=== PATIENT | female | born 1995 | race African-American/Black ===

== ENCOUNTER 2019-01-27 21:23 | Emergency (ER) | payer MEDICAID ==
[~2019-01-27] VITALS: Ht 165.1 cm; Wt 79.0 kg
[2019-01-27] MEDS ORDERED: KETOROLAC 15MG/ML VIAL IV ONE (23:15)
[2019-01-28] MEDS ORDERED: MORPHINE SULFATE 4 MG/ML CPJ (NOT FOR IM USE) IV ONE (01:15)
[2019-01-28] MEDS ORDERED: ONDANSETRON HCL 4MG/2ML INJ IV ONE (02:15)
[2019-01-28] MEDS ORDERED: PROPOFOL 200MG/20ML VIAL IV ONE (02:15)
[2019-01-28 04:37] VITALS: BP 113/65
== END 2019-01-28 04:40 | disposition home or self-care (01) ==
LOC: ER 21:49
DX: S52.611A Displaced fracture of right ulna styloid process, initial encounter for closed fracture (principal); S52.511A Displaced fracture of right radial styloid process, initial encounter for closed fracture; F17.200 Nicotine dependence, unspecified, uncomplicated; V49.19XA Passenger injured in collision with other motor vehicles in nontraffic accident, initial encounter; Y93.89 Activity, other specified; Y92.89 Other specified places as the place of occurrence of the external cause; Y99.8 Other external cause status
CPT/HCPCS: 25605; 73090; 73110; 73130; 81025; 96374; 96375; 99152; 99285; J1885; J2270; J2405; J2704; A4565

== ENCOUNTER 2024-02-03 15:37 | Emergency (ER) | payer MEDICAID, OTHER ==
[~2024-02-03] VITALS: Ht 167.6 cm; Wt 92.0 kg
[2024-02-03 15:46] VITALS: BP 122/89; TEMP 98.9; O2SAT 100
[2024-02-03 15:48] VITALS: PULSE 100; RESP 16
== END 2024-02-03 16:00 | disposition left against medical advice (07) ==
LOC: ER 15:37
DX: H92.03 Otalgia, bilateral (principal); Z53.21 Procedure and treatment not carried out due to patient leaving prior to being seen by health care provider
CPT/HCPCS: 99281